=== PATIENT | female | born 1990 | race Hispanic/Latino ===

== ENCOUNTER 2019-10-23 08:35 | Emergency (ER) | payer SELFPAY ==
[2019-10-23] MEDS ORDERED: Dexamethasone 4 mg/ml Vial ONE (10:32)
== END 2019-10-23 10:35 | disposition home or self-care (01) ==
LOC: ERS 08:35
DX: J02.8 Acute pharyngitis due to other specified organisms (principal)
CPT/HCPCS: 87081; 87430; 99283; J1100

== ENCOUNTER 2020-12-05 14:25 | Emergency (ER) | payer SELFPAY ==
[2020-12-05 15:28] LABS: Bacteria/HPF None Seen HPF (None Seen); Bilirubin Negative (Negative); Blood, Urine 3+ (Negative); Clarity Clear (Clear); Glucose, Urine (Dipstick) Normal (Negative); Ketone, Urine Negative (Negative); Leukocyte 25 Leu/uL (Negative); Nitrite Negative (Negative); Protein, Urine (Dipstick) 20 mg/dL (Neg-Trace); RBC/HPF 0-3 HPF (0-3); Specific Gravity, Urine 1.031 (1.002-1.036); Urobilinogen Normal mg/dL (Less than 2); WBC/HPF 0-3 HPF (0-3)
[2020-12-05 15:31] LABS: Pregnancy Test - Urine (BHCG) Negative (Negative); Pregu Control Background? CLEAR/WHITE (CLR/WHITE); Pregu Control Bar Appear? YES (CONTROL BAR); Specific Gravity 1.031 (1.002-1.036)
[2020-12-05 15:46] LABS: Albumin 3.7 g/dL (3.5-5.0)
[2020-12-05 15:47] LABS: Chloride 106 mmol/L (98-107)
[2020-12-05 15:48] LABS: Calcium 8.4 mg/dL (7.8-10.44); Sodium 138 mmol/L (136-145)
[2020-12-05 15:49] LABS: Globulin 2.2 g/dL (2.4-3.5); Glucose 108 mg/dL (70-105); Protein, Total 5.9 g/dL (6.0-8.3)
[2020-12-05 15:50] LABS: Anion Gap 9 mmol/L (10-20); Carbon Dioxide 27 mmol/L (22-29)
[2020-12-05 15:51] LABS: Bilirubin, Total 0.5 mg/dL (0.2-1.2)
[2020-12-05 15:52] LABS: #Eosinphils 0.1 thou/uL (0.0-0.7); #Lymphocytes 2.4 thou/uL (1.20-3.40); #Monocytes 0.6 thou/uL (0.11-0.59); #Neutrophils 8.5 thou/uL (1.40-6.50); %Basophils 0.2 % (0.0-1.0); %Eosinophils 1.1 % (0.0-10.0); %Lymphocytes 20.7 % (21.0-51.0); %Monocytes 4.9 % (0.0-10.0); %Neutrophils 73.2 % (42.0-75.0); Alkaline Phosphatase 77 U/L (40-110); Calc. Creatinine Clearance 0 mL/min (70-130); Hemoglobin 15.1 g/dL (12.0-16.0); Mean Corpuscular HGB CONC 33.7 g/dL (32.0-36.0); Mean Corpuscular Hemoglobin 29.1 pg (27.0-31.0); Mean Corpuscular Volume 86.3 fL (78.0-98.0); Platelet Count 236 thou/uL (130-400); RBC Distribution Width 11.5 % (11.5-14.5); Red Blood Cell (RBC) Count 5.17 mill/uL (4.20-5.40); White Blood Cell (WBC) Count 11.5 thou/uL (4.8-10.8)
[2020-12-05 15:53] LABS: BUN (Urea Nitrogen) 9 mg/dL (7.0-18.7)
[2020-12-05 15:54] LABS: AST (SGOT) 16 U/L (5-34)
[2020-12-05 15:55] LABS: ALT (SGPT) 28 U/L (8-55)
== END 2020-12-05 16:50 | disposition home or self-care (01) ==
LOC: ERS 14:25
DX: N92.6 Irregular menstruation, unspecified (principal)
CPT/HCPCS: 36415; 80053; 81003; 81015; 81025; 85025; 99284